=== PATIENT | female | born 1995 | race Two or more races ===

== ENCOUNTER 2017-11-27 20:03 | Emergency (ER) | payer MEDICAID ==
[~2017-11-27] VITALS: Ht 154.9 cm; Wt 89.4 kg
[2017-11-27 20:15] VITALS: BP 132/84
[2017-11-27 21:35] VITALS: BP 130/82
[2017-11-27 21:40] VITALS: BP 130/82
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
== END 2017-11-27 21:45 | disposition home or self-care (01) ==
LOC: EDBD 20:03 → EMR 21:43
DX: S01.81XA Laceration without foreign body of other part of head, initial encounter (principal); Z91.010 Allergy to peanuts; W01.0XXA Fall on same level from slipping, tripping and stumbling without subsequent striking against object, initial encounter; Y92.9 Unspecified place or not applicable
CPT/HCPCS: 12011; 99284; Z7502

== ENCOUNTER 2017-12-05 11:26 | Emergency (ER) | payer MEDICAID, OTHER ==
[~2017-12-05] VITALS: Ht 154.9 cm; Wt 88.5 kg
[2017-12-05 12:10] VITALS: BP 108/71
--- NOTE | 2017-12-05 12:53 | Emergency Room Report ---
History of Present Illness General Chief Complaint: Wound Recheck/Suture Removal Source: Patient Present Illness HPI 22-year-old female presents to ED for suture removal. Had sutures placed in her right eyebrow one week ago. Status post trip and fall. Patient denies any pain at this time. States wound is healing well. Denies any discharge. No other aggravating or relieving factors. Denies any other associated symptoms Allergies: Coded Allergies: PEANUT (Verified Allergy, Severe, Itching, 12/05/17) Patient History Past Medical History: none Past Surgical History: none Pertinent Family History: none Social History: Denies: smoking, alcohol use, drug use Last Menstrual Period: 2 weeks Now: No Immunizations: UTD Reviewed Nursing Documentation: PMH: Agreed; PSxH: Agreed Nursing Documentation-PMH Past Medical History: No Stated History Review of Systems All Other Systems: negative except mentioned in HPI Physical Exam Vital Signs Date Time Temp Pulse Resp B/P (MAP) Pulse Ox O2 Delivery O2 Flow Rate FiO2 12/05/17 11:29 97.5 101 20 110/68 98 Room Air 97.5 Sp02 EP Interpretation: reviewed, normal General Appearance: no apparent distress, alert, GCS 15, non-toxic Head: normocephalic Eyes: bilateral eye normal inspection, bilateral eye PERRL ENT: normal ENT inspection Neck: normal inspection Respiratory: normal inspection Cardiovascular #1: normal inspection Gastrointestinal: normal inspection Rectal: heme negative stool Genitourinary: no CVA tenderness Musculoskeletal: normal inspection Neurologic: alert, oriented x3, responsive, motor strength/tone normal, sensory intact, speech normal Psychiatric: judgement/insight normal, memory normal, mood/affect normal, no suicidal/homicidal ideation Skin: other - suture line c/d/i. well approximated. sutures in place Lymphatic: normal inspection Medical Decision Making Diagnostic Impression: Primary Impression: Encounter for removal of sutures ER Course Patient presents to the emergency department today for suture removal. patient' s wound appears well-healed, and sutures are ready to be removed today. Using sterile technique the sutures were removed patient tolerated procedure well without any difficulty. Patient was given advice in how to care for the wound patient is advised followup with his private care doctor in 2-3 days and return to emergency room for any worsening conditions as needed Last Vital Signs Date Time Temp Pulse Resp B/P (MAP) Pulse Ox O2 Delivery O2 Flow Rate FiO2 12/05/17 12:10 98.1 71 18 108/71 100 Room Air 97.5 Status: improved Disposition: HOME, SELF-CARE Condition: Stable Referrals: [facility] (PCP) Patient Instructions: Suture Removal, Care After MARIA INES RANDOLPH M.D. Dec 05, 2017 12:53
== END 2017-12-05 12:11 | disposition home or self-care (01) ==
LOC: EMR 11:48
DX: Z48.02 Encounter for removal of sutures (principal); Z91.010 Allergy to peanuts
CPT/HCPCS: 99281

== ENCOUNTER 2018-09-03 08:57 | Emergency (ER) | payer OTHER ==
[~2018-09-03] VITALS: Ht 152.4 cm; Wt 104.3 kg
[2018-09-03] MEDS ORDERED: Tylenol #3 tab (300mg/30mg) PO ONE (09:30)
[2018-09-03] MEDS ORDERED: ACETAMINOPHEN-1 EAC1 ORAL (10:15)
[2018-09-03] MEDS ORDERED: IBUPROFEN600 MG ORAL (10:15)
--- NOTE | 2018-09-03 10:19 | Diagnostic Imaging Report ---
Indication: Knee pain Technique: 3 views of the left knee Comparison: None Findings: No acute fractures. No dislocations. The joint spaces are preserved. No suprapatellar effusion demonstrated Impression: Negative
[2018-09-03 10:27] VITALS: BP 125/89
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
== END 2018-09-03 10:30 | disposition home or self-care (01) ==
LOC: EMR 09:08
DX: S89.92XA Unspecified injury of left lower leg, initial encounter (principal); Y04.0XXA Assault by unarmed brawl or fight, initial encounter; Y92.89 Other specified places as the place of occurrence of the external cause
CPT/HCPCS: 29505; 99283